=== PATIENT | male | born 1950 | race Two or more races ===

== ENCOUNTER 2022-07-31 11:15 | Inpatient (IN) | payer OTHER ==
[~2022-07-31] VITALS: Ht 177.8 cm; Wt 78.9 kg
[2022-07-31] MEDS ORDERED: CRESTOR20 MG PO (14:42)
[2022-07-31] MEDS ORDERED: COZAAR50 MG PO (14:42)
== END 2022-08-06 14:25 | disposition home or self-care (01) | DRG 330 ==
LOC: O/R 08-03 05:00 → SURH 08-03 11:15 → MEDI 08-03 15:37
PROVIDERS: ADMIT Surgery; ATTEND Surgery
PROC: 07BB4ZZ Excision of Mesenteric Lymphatic, Percutaneous Endoscopic Approach (ICD-10-PCS; 2022-08-03)
PROC: 07BC4ZZ Excision of Pelvis Lymphatic, Percutaneous Endoscopic Approach (ICD-10-PCS; 2022-08-03)
PROC: 0DTF4ZZ Resection of Right Large Intestine, Percutaneous Endoscopic Approach (ICD-10-PCS; principal; 2022-08-03 13:30)
DX: D12.2 Benign neoplasm of ascending colon (principal); C18.0 Malignant neoplasm of cecum; R59.9 Enlarged lymph nodes, unspecified; I10 Essential (primary) hypertension

== ENCOUNTER 2022-09-14 06:10 | Day surgery (SDC) | payer OTHER ==
[~2022-09-14 06:10] MED LIST: COZAAR50 MG PO; CRESTOR20 MG PO
[2022-09-14] MEDS ORDERED: ULTRACET PO (10:40)
== END 2022-09-14 14:00 | disposition home or self-care (01) ==
LOC: CIR.AMB 06:10
PROVIDERS: ATTEND Surgery
DX: C18.9 Malignant neoplasm of colon, unspecified (principal); I10 Essential (primary) hypertension